=== PATIENT | female | born 1950 | race African-American/Black ===

== ENCOUNTER → 2017-09-14 | Outpatient (CLI) | payer BC ==
[2017-09-14 11:01] LABS: ISTAT CREATININE 1.1 mg/dL (0.6-1.1)
[2017-09-14] MEDS: GADOBUTROL 7.5 MMOL/7.5 ML VIAL IV (11:14)
== END | disposition home or self-care (01) ==
LOC: KCIC MRI 10:06
DX: M48.02 Spinal stenosis, cervical region (principal); M50.20 Other cervical disc displacement, unspecified cervical region; M25.78 Osteophyte, vertebrae
CPT/HCPCS: 72156; 82565; A9585

== ENCOUNTER 2017-10-14 11:18 | Emergency (ER) | payer BC ==
[2017-10-14] MEDS: IV NORMAL SALINE 1000ML BAG 1,000 ML IV (11:45)
[2017-10-14 11:51] LABS: ADD MAN DIFF? NO
[2017-10-14 11:55] LABS: BASO # 0.1 x10^3/uL (0.0-0.2); BASO % 1 % (0-3); EOS # 0.1 x10^3/uL (0.0-0.7); EOS % 1 % (0-3); HEMATOCRIT 39.7 % (36.0-47.0); HEMOGLOBIN 13.3 g/dL (12.0-15.5); LYMPH # 2.7 x10^3/uL (1.0-4.8); LYMPH % 28 % (24-48); MEAN CORPUSCULAR HEMOGLOBIN 32 pg (25-35); MEAN CORPUSCULAR HGB CONC 34 g/dL (31-37); MEAN CORPUSCULAR VOLUME 95 fL (79-100); MONO # 0.5 x10^3/uL (0.0-1.1); MONO % 5 % (0-9); NEUT # 6.1 x10^3uL (1.8-7.7); NEUT % 64 % (31-73); PLATELET COUNT 298 x10^3/uL (140-400); RED BLOOD COUNT 4.19 x10^6/uL (3.50-5.40); RED CELL DISTRIBUTION WIDTH 13.4 % (11.5-14.5); WHITE BLOOD COUNT 9.5 x10^3/uL (4.0-11.0)
[2017-10-14 12:04] LABS: ANION GAP 6 (6-14); BLOOD UREA NITROGEN 29 mg/dL (7-20); BUN/CREATININE RATIO 19 (6-20); CALCIUM 9.6 mg/dL (8.5-10.1); CARBON DIOXIDE 31 mmol/L (21-32); CHLORIDE 101 mmol/L (98-107); CREATININE 1.5 mg/dL (0.6-1.0); GFR 41.8; GLUCOSE 112 mg/dL (70-99); POTASSIUM 4.4 mmol/L (3.5-5.1); SODIUM 138 mmol/L (136-145)
[2017-10-14 12:07] LABS: INR 1.1 (0.8-1.1); PROTHROMBIN TIME PATIENT 13.2 SEC (11.7-14.0)
[2017-10-14 12:10] LABS: ALBUMIN 3.8 g/dL (3.4-5.0); ALK PHOS 92 U/L (46-116); ALT (SGPT) 18 U/L (14-59); AST (SGOT) 13 U/L (15-37); TOTAL BILIRUBIN 0.4 mg/dL (0.2-1.0); TOTAL PROTEIN 7.8 g/dL (6.4-8.2)
[2017-10-14 12:12] LABS: TROPONINI < 0.017 ng/mL (0.000-0.055)
[2017-10-14 12:15] LABS: LACTIC ACID 1.6 mmol/L (0.4-2.0)
[2017-10-14 13:10] LABS: BILIRUBIN,URINE SMALL (NEG); CLARITY,URINE TURBID; COLOR,URINE AMBER; GLUCOSE,URINE NEGATIVE (NEG); NITRITE,URINE NEGATIVE (NEG); PH,URINE 5.5; PROTEIN,URINE 100 mg/dL (NEG-TRACE)
[2017-10-14 13:19] LABS: BACTERIA,URINE FEW /HPF (0-FEW); RBC,URINE OCC /HPF (0-2); SQUAMOUS EPITHELIAL CELL,UR MANY /LPF; WBC,URINE OCC /HPF (0-4)
== END 2017-10-14 14:19 | disposition home or self-care (01) ==
LOC: ER 11:18
DX: I95.9 Hypotension, unspecified (principal); R53.1 Weakness; I11.0 Hypertensive heart disease with heart failure; I50.9 Heart failure, unspecified; E11.9 Type 2 diabetes mellitus without complications; Z86.73 Personal history of transient ischemic attack (TIA), and cerebral infarction without residual deficits; Z88.0 Allergy status to penicillin; Z88.2 Allergy status to sulfonamides; Z91.041 Radiographic dye allergy status
CPT/HCPCS: 36415; 71045; 80053; 81001; 83605; 84484; 85025; 85610; 87040; 87086; 93005; 96360; 99285-25; J7030

== ENCOUNTER → 2018-08-16 | Outpatient (CLI) | payer MEDICARE ==
[2017-10-14 13:49] VITALS: BP 135/74
[~2018-08-16] MED LIST: ALPR0.5T6 PO; ASPI325T70 PO; CALC600T4 PO; CARV3.1210 PO; CEPH-264 PO; CETI10TA16 PO; CHOL500045 PO; CITA40TA12 PO; CYCL10TA2 PO; DIGO0.12 PO; DOCU-109 PO; FLUT16SP2 NS; FURO40TA4 PO; GABA800T5 PO; HYDR-2761 PO; HYDR-2765 PO; LEVO50TA5 PO; MELO15TA23 PO; OMEP20CA10 PO; POTA20TA82 PO; QUET50TA5 PO; TIZA4TAB PO
--- NOTE | 2018-08-16 13:44 | CARD ---
MR#: [id number] Date of Study: 08/16/2018 Ordering Physician: EMELYN HARTLEY, Referring Physician: EMELYN HARTLEY, Tech: Nikki Ashley KOTA APPROVED REPORT EXAM: Two-dimensional and M-mode echocardiogram with Doppler and color Doppler. Other Information Quality : GoodHR: 74bpm Rhythm : NSR INDICATION Shortness of breath 2D DIMENSIONS RVDd2.6 (2.9-3.5cm)Left Atrium(2D)3.8 (1.6-4.0cm) IVSd0.7 (0.7-1.1cm)Aortic Root(2D)2.8 (2.0-3.7cm) LVDd5.0 (3.9-5.9cm)LVOT Diameter2.0 (1.8-2.4cm) PWd1.0 (0.7-1.1cm)LVDs3.8 (2.5-4.0cm) FS (%) 24.4 %SV56.9 ml M-Mode DIMENSIONS Left Atrium(MM)3.04 (2.5-4.0cm)Aortic Root3.04 (2.2-3.7cm) Aortic Valve AoV Peak Raúl.115.1cm/sAoV VTI22.1cm AO Peak GR.5.3mmHgLVOT Peak Raúl.90.2cm/s AO Mean GR.3mmHgAVA (VMAX)2.58cm2 JEANNETTE (VTI)2.64eo1NX P 1/2 [id number] Mitral Valve MV E Kdzszrml79.0cm/sMV E Peak Gr.112mmHg MV DECEL TUTR642cjDS A Cowpmxnk09.8cm/s MV E Mean Gr.75mmHgE/A Ratio1.0 MV A Mzqwpeju079uq Pulmonary Valve PV Peak Ippsgsze91.4cm/s Tricuspid Valve TR P. Ubfkjlfk815kk/sRAP QFJFRRKE5cpBr TR Peak Gr.40xnWnFTTT84diRi Pulmonary Vein S1 Etzjplhj35.6cm/sD2 Uzexqlgj58.0cm/s PVa tmbynvox883hqgj LEFT VENTRICLE The Left Ventricle is borderline dilated. There is normal left ventricular wall thickness. Left ventr icle systolic function is mildly decreased. The Ejection Fraction is estimated at 40%. There is globa l hypokinesis of the left ventricle. Transmitral Doppler flow pattern is Grade II-pseudonormal fillin g dynamics. RIGHT VENTRICLE The right ventricle is normal size. There is normal right ventricular wall thickness. The right ventr icular systolic function is normal. ATRIA The left atrium size is normal. The right atrium size is normal. The interatrial septum is intact wit h no evidence for an atrial septal defect or patent foramen ovale as noted on 2-D or Doppler imaging. AORTIC VALVE The non coronary cusp is calcified. The aortic valve is trileaflet. Doppler and Color Flow revealed m ild aortic regurgitation. There is no significant aortic valvular stenosis. MITRAL VALVE The mitral valve is calcified but opens well. There is no evidence of mitral valve prolapse. There is no mitral valve stenosis. Doppler and Color-flow revealed mild to moderate mitral regurgitation. TRICUSPID VALVE The tricuspid valve is normal in structure and function. Doppler and Color Flow revealed trace tricus pid regurgitation. The PA pressure was estimated at 26 mmHg. There is no tricuspid valve prolapse or vegetation. There is no tricuspid valve stenosis. PULMONIC VALVE The pulmonary valve is normal in structure and function. Doppler and Color Flow revealed mild pulmoni c valvular regurgitation. There is no pulmonic valvular stenosis. GREAT VESSELS The aortic root is normal in size. The ascending aorta is normal in size. The IVC is normal in size a nd collapses >50% with inspiration. PERICARDIAL EFFUSION There is no evidence of significant pericardial effusion. Critical Notification Critical Value: No <Conclusion> The Left Ventricle is borderline dilated. Left ventricle systolic function is mildly decreased. The Ejection Fraction is estimated at 40%. There is mild global hypokinesis of the left ventricle. There is no significant aortic valvular stenosis. Doppler and Color Flow revealed mild aortic regurgitation. Doppler and Color-flow revealed mild to moderate mitral regurgitation. Doppler and Color Flow revealed trace tricuspid regurgitation. The PA pressure was estimated at 26 mmHg. Signed by : Emelyn Hartley MD Electronically Approved : 08/16/2018 13:43:34
== END | disposition home or self-care (01) ==
LOC: ECHO 09:49
PROVIDERS: ATTEND Internal Medicine Cardiovascular Disease
DX: I08.8 Other rheumatic multiple valve diseases (principal)
CPT/HCPCS: 93306

== ENCOUNTER → 2019-05-24 | Outpatient (CLI) | payer MEDICAID, MEDICARE, OTHER ==
[2017-10-14 13:49] VITALS: BP 135/74
[~2019-05-24] MED LIST changes: -OMEP20CA10 PO; +OMEP20CA16 PO; +POTA20TA4 PO; -POTA20TA82 PO; -TIZA4TAB PO; +TIZA4TAB2 PO
--- NOTE | 2019-05-24 16:59 | KCIC ---
Pelvic ultrasound HISTORY: Pelvic pain. Prior hysterectomy, uncertain as to full or partial. FINDINGS: No sonographic abnormality is seen in the region of the vaginal cuff. No significant free fluid is seen. The right and left ovaries cannot be visualized. Bowel loops are identified in the pelvis and adnexal regions. No abnormal fluid collection is seen. IMPRESSION: 1. Post hysterectomy. 2. Nonvisualization of ovaries 3. No free pelvic fluid. Electronically signed by: Junior Dickerson MD (05/24/2019 4:56 PM) [facility]
--- NOTE | 2019-05-24 17:21 | KCIC ---
ABDOMEN COMPLETE History: Abdominal pain Comparison: None. Technique: Sonographic examination of the abdomen was performed and multiple grayscale and color Doppler static images were obtained. Findings: Liver demonstrates mildly increased echogenicity. The liver measures 18 cm. Portal flow is patent Common bile duct measures 4.2 mm in diameter. Gallbladder wall is normal. No cholelithiasis or pericholecystic fluid. Visualized pancreas is not well seen due to overlying bowel gas. The right kidney measures 10.4 x 3.8 x 4.9 cm. No hydronephrosis. The left kidney measures 10.1 x 4.3 x 3.6 cm. No hydronephrosis. The spleen measures 6.9 cm. Aorta and IVC not well seen due to overlying bowel gas. IMPRESSION: 1. Borderline hepatomegaly with increased echotexture, may indicate steatosis. Electronically signed by: Felice Jameson DO (05/24/2019 5:18 PM) [id number]
== END | disposition home or self-care (01) ==
LOC: KCIC US 08:46
PROVIDERS: ATTEND Family Medicine
DX: R16.0 Hepatomegaly, not elsewhere classified (principal); Z90.710 Acquired absence of both cervix and uterus
CPT/HCPCS: 76700; 76856

== ENCOUNTER → 2019-11-22 | Outpatient (CLI) | payer OTHER ==
[2017-10-14 13:49] VITALS: BP 135/74
[~2019-11-22] MED LIST changes: -CALC600T4 PO; +CALC600T6 PO
--- NOTE | 2019-11-23 16:23 | RAD ---
EXAM: UNILATERAL RIGHT DIGITAL SCREENING MAMMOGRAPHY. HISTORY: Personal history of left breast cancer status post left mastectomy. Routine right surveillance. TECHNIQUE: Right full field digital images were obtained in CC and MLO projections. Computer-aided detection was not currently available. COMPARISON: 09/12/2018, 08/26/2015. COMPOSITION: B. There are scattered areas of fibroglandular density. FINDINGS: There are no suspicious masses, microcalcifications or architectural distortion. The parenchymal pattern is stable. A few small circumscribed nodules are stable and benign. Scattered calcifications are benign. BI-RADS CATEGORY 2: Benign. RECOMMENDATION: 1. Routine right surveillance mammography in one year. If mammography demonstrates dense breast tissue (heterogenously dense or extremely dense, category C or D), which could hide abnormalities, and if other risk factors for breast cancer have been identified, supplemental screening tests that may be suggested by the ordering physician may be of benefit. Dense breast tissue, in and of itself, is a relatively common condition. Therefore, this information is not provided to cause undue concern, but rather to raise awareness and to promote discussion with the referring physician regarding the presence of other risk factors, in addition to dense breast tissue. The results of this mammography examination is provided to the patient and referring physician. The patient should contact their referring physician if any questions or concerns exist regarding this report. PQRS compliance statement - Patient information was entered into a reminder system with a target due date for the next mammogram. "Our facility is accredited by the [employer] Mammography [employer]." Electronically signed by: Maria A Mcnally MD (11/23/2019 4:20 PM) [id number]
== END | disposition home or self-care (01) ==
LOC: MAMMO 13:27
PROVIDERS: ATTEND Family Medicine
DX: Z12.31 Encounter for screening mammogram for malignant neoplasm of breast (principal); N64.89 Other specified disorders of breast; Z90.12 Acquired absence of left breast and nipple
CPT/HCPCS: 77061; 77063; 77067

== ENCOUNTER → 2020-11-27 | Outpatient (CLI) | payer MEDICARE, OTHER ==
[2017-10-14 13:49] VITALS: BP 135/74
[~2020-11-27] MED LIST changes: -CALC600T6 PO; +CALC600T60 PO
--- NOTE | 2020-11-27 12:49 | RAD ---
EXAM: Right breast diagnostic mammogram with tomosynthesis. HISTORY: 70-year-old female with a history of left breast cancer, status post left mastectomy, presen ts with right chest wall pain. The patient reports no focal palpable lump. TECHNIQUE: Full-field digital craniocaudal and mediolateral oblique 2D and 3D tomosynthesis images of the right breast are obtained for evaluation. Computer aided detection was applied. COMPARISON: 11/26/2015 and 11/22/2019 BREAST PARENCHYMAL DENSITY: Level B - Scattered fibroglandular densities. FINDINGS: There is no new suspicious mass, microcalcification or region of architectural distortion. There are stable areas of benign nodularity within the right breast. IMPRESSION: BI-RADS Category 2: Benign finding(s). RECOMMENDATION: Annual mammography is recommended. If your mammogram demonstrates that you have dense breast tissue, which could hide abnormalities, and if you have other risk factors for breast cancer that have been identified, you might benefit from s upplemental screening tests that may be suggested by your ordering physician. Dense breast tissue, i n and of itself, is a relatively common condition. This information is not provided to cause undue c oncern, but rather to raise your awareness and to promote discussion with your physician regarding th e presence of other risk factors, in addition to dense breast tissue. A report of your mammography re sults will be sent to you and your physician. You should contact your physician if you have any ques tions or concerns regarding this report. Mammography is a sensitive method for finding small breast cancers, but it does not detect them all a nd is not a substitute for careful clinical examination. A negative mammogram does not negate a clin ically suspicious finding and should not result in delay in biopsying a clinically suspicious abnorma lity. PQRS compliance statement - Patient information was entered into a reminder system with a target due date for the next mammogram. "Our facility is accredited by the [employer] Mammography [employer]." Electronically signed by: Lissy Chua MD (11/27/2020 12:47 PM) [id number]
== END ==
LOC: MAMMO 12:12
PROVIDERS: ATTEND Internal Medicine Hematology & Oncology
DX: R92.2 Inconclusive mammogram (principal); N63.10 Unspecified lump in the right breast, unspecified quadrant; Z90.12 Acquired absence of left breast and nipple
CPT/HCPCS: 77065; G0279; 77061

== ENCOUNTER → 2020-12-29 | Outpatient (CLI) | payer MEDICARE ==
[2017-10-14 13:49] VITALS: BP 135/74
--- NOTE | 2020-12-30 03:42 | RAD ---
EXAM: AP, lateral and lumbosacral spot views of the lumbar spine DATE: 12/29/2020 2:16 PM INDICATION: Reason: LOW BACK PAIN. / Spl. Instructions: / History: COMPARISON: No Prior FINDINGS: Small ribs are seen at T12. 5 nonrib-bearing lumbar-type vertebral bodies. Vertebral body heights are preserved. No acute fracture. No spondylolisthesis. Facet degenerative changes L3-4 and below. Disc heights are grossly preserved. IMPRESSION: 1. No acute fracture or subluxation. 2. Multilevel facet degenerative changes are seen. Electronically signed by: Richard Riddle MD (12/30/2020 3:39 AM) [facility]
== END ==
LOC: RAD 13:40
PROVIDERS: ATTEND Family Medicine
DX: M47.816 Spondylosis without myelopathy or radiculopathy, lumbar region (principal)
CPT/HCPCS: 72100